=== PATIENT | male | born 1980 | race Caucasian/White ===

== ENCOUNTER → 2022-07-07 | Outpatient (CLI) | payer SELFPAY | LOC: LAB 16:54 | PROVIDERS: ATTEND Urology | DX: Z98.52 Vasectomy status (principal) ==

== ENCOUNTER → 2022-08-25 | Outpatient (CLI) | payer SELFPAY | LOC: LAB 08:04 | PROVIDERS: ATTEND Nurse Practitioner Family | DX: Z98.52 Vasectomy status (principal) | CPT/HCPCS: 89321 ==